=== PATIENT | female | born 1935 | race Caucasian/White ===

== ENCOUNTER → 2019-07-04 10:23 | Outpatient (CLI) | payer MEDICARE, BC, SELFPAY ==
--- NOTE | ~2019-07-04 | XR_ITS ---
EXAMINATION: XR lumbar spine 6V w bending DATE: 07/04/2019 11:05 INDICATION: Low back pain and radiculopathy TECHNIQUE: Anteroposterior, lateral in neutral, flexion and extension, and bilateral oblique views of the lumbar spine, and cone-down lateral view of the lumbosacral junction were obtained. COMPARISON: CT, 04/04/2019; MRI from today and 08/25/2017 FINDINGS: There are 4 mm of stable retrolisthesis of L3 on L4. No laxity is present with flexion or e xtension. A chronic L3 compression fracture is noted with 2/5 loss of height. There is mild loss of i ntervertebral disc space height at L1-2 and moderate loss of disc space height at L2-3 and L3-4. Ther e is severe facet osteoarthritis of the lower lumbar spine. No fracture is identified. IMPRESSION: 1. Moderate lumbar spondylosis without acute findings or significant interval change. Reviewed, dictated and finalized at location A.
--- NOTE | ~2019-07-04 | MR_ITS ---
EXAMINATION: MR lumbar spine wo [facility] EXAM DATE: 07/04/2019 11:26 INDICATION: Low back pain, bilateral hip burning, right leg pain. TECHNIQUE: Multi-sequential, multiplanar MR images of the lumbar spine were obtained without contrast . Sagittal T1, T2, T2 fat saturation images. Axial T2 weighted images. Comparison is made to prior examination from 08/25/2017. FINDINGS: Mild to moderate chronic compression fractures of L2 and L3 with anterior wedging of these levels. Moderate size Schmorl's node at the superior endplate of L3. There is 3 mm anterolisthesis L5 on S1. There is 4 mm retrolisthesis L3 on L4. Mild to moderate disc disease L2-3 and L3-4, mild at t he other lumbar levels. The conus medullaris terminates at the L1/2 level and has normal signal inten sity and morphology. Paraspinal soft tissue is unremarkable. There are no suspicious marrow signal abnormalities. Level by level evaluation: T12-L1: There is a mild diffuse disc bulge. Facet arthropathy: Mild. Neural foraminal stenosis: No stenosis. Central canal stenosis: No stenosis. L1-L2: There is a mild to moderate diffuse disc bulge. Facet arthropathy: Mild to moderate. Neural foraminal stenosis: Mild bilateral. Central canal stenosis: Minimal. L2-L3: There is a mild to moderate diffuse disc bulge. Facet arthropathy: Mild to moderate. Neural foraminal stenosis: Mild to moderate left, mild right. Central canal stenosis: Mild. L3-L4: There is a moderate diffuse disc bulge. Facet arthropathy: Moderate . Ligamentum flavum enlargement. Neural foraminal stenosis: Moderate bilateral. Central canal stenosis: Moderate. L4-L5: There is a mild to moderate diffuse disc bulge. Facet arthropathy: Moderate to severe . Ligamentum flavum enlargement. Neural foraminal stenosis: Moderate bilateral. Central canal stenosis: Moderate. L5-S1: There is a mild diffuse disc bulge. Facet arthropathy: Moderate to severe right, mild left. Neural foraminal stenosis: Mild bilateral. Central canal stenosis: Mild. Compared to prior study, the L2 compression fracture has developed, but without edema is still likely chronic. Otherwise minimal progression in spondylosis. IMPRESSION: 1. Chronic L2 and L3 compression fractures. 2. Overall moderate lumbar spondylosis. Reviewed, dictated and finalized at location A.
== END ==
PROVIDERS: PCP Internal Medicine; Visit Provider Nurse Practitioner Adult Health
DX: M48.061 Spinal stenosis, lumbar region without neurogenic claudication (principal); M47.26 Other spondylosis with radiculopathy, lumbar region
CPT/HCPCS: 72114; 72148

== ENCOUNTER 2019-07-05 09:24 | Emergency (ER) | payer MEDICARE, BC, SELFPAY ==
[2019-07-05 09:42] VITALS: BP 151/58; PULSE 75; RESP 16; TEMP 36.4; O2SAT 98
--- NOTE | 2019-07-05 09:44 | ED.GENADULT ---
HPI - General Adult General Chief complaint: Urogenital-Female Stated complaint: UTI History of Present Illness HPI narrative: Patient is a 83-year-old female with history significant for CVA who presents to urgent care via POV accompanied by her spouse for evaluation of dysuria that is been present for approximately 2 days. Patient is unable to provide detailed HPI due to expressive aphasia. States patient has a history of UTIs and today symptoms are similar to previous UTIs. Unable to obtain aggravating or alleviating factors. Patient has been taking Azo for dysuria. Patient does repeatedly state accidents, accidents, accidents it appears as if she is referring to urinary incontinence. Patient smells of urine. Urine odor strong. Denies history of pyelonephritis and renal calculi. Pertinent negatives: fever, poor p.o. intake, abdominal pain, constipation, nausea, vomiting, diarrhea, abdominal cramping, hematuria, urinary frequency/urgency, back pain, urinary incontinence, vaginal bleeding/discharge, shortness of breath, chest pain, and heart palpitations/murmurs. Patient able to answer questions appropriately. Related Data Home Medications Medication Instructions Recorded Confirmed atorvastatin [Lipitor] 40 mg PO DAILY 07/05/19 07/05/19 cyclosporine [Restasis] 1 drp OPHTHALMIC (EYE) Q12H 07/05/19 07/05/19 escitalopram oxalate [Lexapro] 10 mg PO DAILY 07/05/19 07/05/19 rabeprazole 20 mg PO DAILY 07/05/19 07/05/19 sertraline [Zoloft] 50 mg PO DAILY 07/05/19 07/05/19 Allergies Allergy/AdvReac Type Severity Reaction Status Date / Time adhesive tape Allergy Mild SKIN Verified 04/23/19 09:52 TURNED RED levofloxacin Allergy Mild Unknown Verified 04/23/19 09:52 Sulfa (Sulfonamide Allergy Unknown Unknown Verified 04/23/19 09:52 Antibiotics) Review of Systems Review of Systems: Narrative: All other systems reviewed and are negative PMFSH Past Medical History Medical History Ankle fracture, left Arthritis Breast cancer, left Cataract, left eye 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 Diverticulitis GERD (gastroesophageal reflux disease) Inguinal hernia Leg fracture, left Osteoporosis PUD (peptic ulcer disease) Shingles Spinal stenosis UTI (urinary tract infection) Vertebral fracture Surgical History Surgical History Cataract extraction status, left eye H/O dilation and curettage H/O inguinal hernia repair H/O left mastectomy With reconstruction H/O tubal ligation H/O: hysterectomy History of bladder suspension procedure History of total right knee replacement Family History Family History Father Cerebrovascular accident Mother Family history of malignant neoplasm of uterus Other Family history of malignant neoplasm Social History Social History Smoking status: Never smoker Second hand tobacco smoke exposure: No Alcohol intake: current Drinks per week: 12 Other substance usage details: CBD oil Gender identity (if verbalized by the patient): Female Spiritual care concerns: No Agree to blood products: Yes Exam Narrative: Exam Narrative: GENERAL: Well-appearing, well-nourished, and in no acute distress. HEAD: Normocephalic, atraumatic. NECK: Supple. No lymphadenopathy or nuchal rigidity. CHEST: Lung sounds are clear to auscultation in bilateral lung sánchez. No respiratory distress. HEART: Regular rate and rhythm. No murmur, gallop, or rub heard. ABDOMEN: Soft, non-tender, non-distended, normal active bowel sounds in all quadrants. No guarding. No rebound tenderness. No pulsatile or palpable abdominal mass(es). No CVATGU: Bladder non-distended, non-tender EXTREMITIES: Normal range of motion. No edema. SKIN: Warm, dry
== END 2019-07-05 10:00 | disposition home or self-care (01) ==
PROVIDERS: Emergency Provider Nurse Practitioner Family; PCP Internal Medicine
DX: N30.90 Cystitis, unspecified without hematuria (principal); M19.90 Unspecified osteoarthritis, unspecified site; K21.9 Gastro-esophageal reflux disease without esophagitis; M81.0 Age-related osteoporosis without current pathological fracture; Z98.42 Cataract extraction status, left eye; Z85.3 Personal history of malignant neoplasm of breast; Z90.12 Acquired absence of left breast and nipple; Z96.651 Presence of right artificial knee joint; I69.320 Aphasia following cerebral infarction; K27.9 Peptic ulcer, site unspecified, unspecified as acute or chronic, without hemorrhage or perforation; M48.00 Spinal stenosis, site unspecified
CPT/HCPCS: 81003; 87086; 99213; G0463

== ENCOUNTER 2019-07-07 08:17 | Emergency (ER) | payer MEDICARE, BC, SELFPAY ==
--- NOTE | 2019-07-07 08:25 | ED.FEMALEGU ---
HPI - Female Genitourinary General Chief complaint: Urogenital-Female Stated complaint: urinary retention Time Seen by Provider: 07/07/19 08:22 Source: patient and family Mode of arrival: ambulatory Limitations: no limitations History of Present Illness HPI Narrative: An 83 y/o female presents to the ED with c/o urinary retention. Per patient's , the patient started to have dysuria 2 days ago and went to the urgent care. The patient was diagnosed with UTI and prescribed Doxycycline at the urgent care. The adds that the patient has been compliant with her medication, but has not urinated since last night. She denies any changes in her food and liquid intake. Pt recently had a CVA and has been on medication since. MD elicited complaint: other (Urinary retention) Pertinent past history: other (UTI) Onset (ago): day(s) (1) Urinary symptoms: Dysuria Associated symptoms: denies other symptoms Related Data Home Medications Medication Instructions Recorded Confirmed atorvastatin [Lipitor] 40 mg PO DAILY 07/05/19 07/05/19 cyclosporine [Restasis] 1 drp OPHTHALMIC (EYE) Q12H 07/05/19 07/05/19 escitalopram oxalate [Lexapro] 10 mg PO DAILY 07/05/19 07/05/19 rabeprazole 20 mg PO DAILY 07/05/19 07/05/19 sertraline [Zoloft] 50 mg PO DAILY 07/05/19 07/05/19 Allergies Allergy/AdvReac Type Severity Reaction Status Date / Time adhesive tape Allergy Mild SKIN Verified 04/23/19 09:52 TURNED RED levofloxacin Allergy Mild Unknown Verified 04/23/19 09:52 Sulfa (Sulfonamide Allergy Unknown Unknown Verified 04/23/19 09:52 Antibiotics) Review of Systems Review of Systems: All systems reviewed & are unremarkable except as noted in HPI and below Constitutional: Constitutional: Denies other (Changes in food and liquid intake) Genitourinary: Genitourinary: Reports dysuria and Reports other (Urinary retention) [facility] Past Medical History Medical History Ankle fracture, left Arthritis Breast cancer, left Cataract, left eye 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 Diverticulitis GERD (gastroesophageal reflux disease) Inguinal hernia Leg fracture, left Osteoporosis PUD (peptic ulcer disease) Shingles Spinal stenosis UTI (urinary tract infection) Vertebral fracture Surgical History Surgical History Cataract extraction status, left eye H/O dilation and curettage H/O inguinal hernia repair H/O left mastectomy With reconstruction H/O tubal ligation H/O: hysterectomy History of bladder suspension procedure History of total right knee replacement Family History Family History Father Cerebrovascular accident Mother Family history of malignant neoplasm of uterus Other Family history of malignant neoplasm Social History Social History Smoking status: Never smoker Second hand tobacco smoke exposure: No Alcohol intake: current Drinks per week: 12 Other substance usage details: CBD oil Gender identity (if verbalized by the patient): Female Spiritual care concerns: No Agree to blood products: Yes Exam Narrative: Exam Narrative: GENERAL: Well-appearing, well-nourished, and in no acute distress. HEAD: Normocephalic, atraumatic. ENT: Mucous membranes moist. CHEST: Clear to auscultation. No respiratory distress. HEART: Regular rate and rhythm. Normal peripheral pulses. ABDOMEN: Soft, nontender, nondistended, normal active bowel sounds. EXTREMITIES: Normal range of motion. No edema. SKIN: Warm, dry, no rash. NEURO: Awake and alert, follows commands without issue, expressive aphasia noted. Course Course Emergency Course: Garrido catheter placed by nursing staff with 1000 mL out. Will have patient continue doxycycline. MRI from 2 days ago does not show any nerve impingement or cauda equina. N
[2019-07-07 08:29] VITALS: BP 173/70; PULSE 82; RESP 18; TEMP 36.7; O2SAT 94
[2019-07-07] MEDS: SODIUM CHLORIDE 0.9% IV 1,000 ML 999 ML IV CONT (08:43)
[2019-07-07 09:03] LABS: Basophils Absolute Auto 0.1 K/mm3 (0.0-0.1); Basophils Percent Auto 1.3 % (0.2-1.2); Eosinophils Absolute Auto 0.1 K/mm3 (0-0.3); Eosinophils Percent Auto 2.4 % (0-4.4); Hematocrit 37.4 % (37.0-47.0); Hemoglobin 12.5 g/dL (12.0-15.0); Immature Granulocyte Absolute 0.01 K/mm3 (0.00-0.031); Immature Granulocyte Percent A 0.3 % (0-0.5); Lymphocytes Absolute Auto 1.76 K/mm3 (0.9-3.2); Lymphocytes Percent Auto 47.2 % (18.3-44.2); Mean Corpuscular HGB Conc 33.4 g/dl (32-36); Mean Corpuscular Hemoglobin 32.5 pg (26-34); Mean Corpuscular Volume 97.1 fl (80-100); Mean Platelet Volume 9.1 fl (7.4-10.4); Monocytes Absolute Auto 0.4 K/mm3 (0.1-0.6); Monocytes Percent Auto 11.5 % (2.6-8.5); Neutrophils Absolute Auto 1.4 K/mm3 (1.3-6.7); Neutrophils Percent Auto 37.3 % (45.5-73.1); Platelet Count Result 220 k/mm3 (150-375); Red Blood Count 3.85 M/mm3 (4.2-5.4); White Blood Count 3.7 K/mm3 (4.5-10.0)
[2019-07-07 09:08] LABS: Blood Urea Nitrogen 10 mg/dL (7-17); Calcium 9.1 mg/dL (8.4-10.2); Carbon Dioxide 28 mmol/L (22-30); Chloride 103 mmol/L (98-107); Estimated CRCL calculation 39 ml/min; Estimated Glomerular Filt Rate > 60; Glucose 104 mg/dL (65-105); Potassium 3.8 mmol/L (3.4-5.0); Sodium 138 mmol/L (137-145)
[2019-07-07 09:55] LABS: Add Urine Microscopic? NO; Appearance Urine Clear (Clear); Bilirubin Urine Negative (Negative); Blood Urine Negative (Negative); Color Urine Colorless (Yellow); Glucose Urine UA Negative (Negative); Ketones Urine Negative (Negative); Leukocyte Esterase Ur Negative LEU/UL (Negative); Nitrate Urine Negative (Negative); Protein Urine Negative (Negative); Specific Grav Ur 1.005 (1.001-1.035); Urobilinogen Urine Negative mg/dL (<2.0)
[2019-07-07 10:59] VITALS: BP 158/75; PULSE 68; RESP 19; O2SAT 100
== END 2019-07-07 11:04 | disposition home or self-care (01) ==
PROVIDERS: Emergency Provider Emergency Medicine; PCP Internal Medicine
DX: R33.9 Retention of urine, unspecified (principal); N39.0 Urinary tract infection, site not specified; M19.90 Unspecified osteoarthritis, unspecified site; Z85.3 Personal history of malignant neoplasm of breast; I69.920 Aphasia following unspecified cerebrovascular disease; K21.9 Gastro-esophageal reflux disease without esophagitis; M81.0 Age-related osteoporosis without current pathological fracture; Z87.11 Personal history of peptic ulcer disease; Z98.42 Cataract extraction status, left eye; Z90.12 Acquired absence of left breast and nipple; Z96.651 Presence of right artificial knee joint
CPT/HCPCS: 36415; 51702; 80048; 81003; 85025; 96360; 99283; J7030

== ENCOUNTER 2019-07-10 09:07 | Emergency (ER) | payer MEDICARE, BC, SELFPAY ==
--- NOTE | 2019-07-10 09:10 | ED.FEMALEGU ---
HPI - Female Genitourinary General Chief complaint: Urogenital-Female Stated complaint: Catheter problems. Time Seen by Provider: 07/10/19 09:09 Source: patient and family Mode of arrival: ambulatory Limitations: no limitations History of Present Illness HPI Narrative: An 83 y/o female presents to the ED with c/o catheter problems. Per patient's family, the patient had her catheter bag upside down today and was causing the tape to unstick from her leg. She denies ABD pain, fever, and chills. Pt is currently prescribed Doxycycline. She has a PMHx of CVA with expressive aphasia. MD elicited complaint: other (catheter problems) Pertinent past history: other (catheter placement) Onset (ago): hour(s) (today) Associated symptoms: denies other symptoms Treatment prior to arrival: other (Doxycycline) Related Data Home Medications Medication Instructions Recorded Confirmed atorvastatin [Lipitor] 40 mg PO DAILY 07/05/19 07/05/19 cyclosporine [Restasis] 1 drp OPHTHALMIC (EYE) Q12H 07/05/19 07/05/19 escitalopram oxalate [Lexapro] 10 mg PO DAILY 07/05/19 07/05/19 rabeprazole 20 mg PO DAILY 07/05/19 07/05/19 sertraline [Zoloft] 50 mg PO DAILY 07/05/19 07/05/19 Allergies Allergy/AdvReac Type Severity Reaction Status Date / Time adhesive tape Allergy Mild SKIN Verified 07/10/19 09:13 TURNED RED levofloxacin Allergy Mild Unknown Verified 07/10/19 09:13 Sulfa (Sulfonamide Allergy Unknown Unknown Verified 07/10/19 09:13 Antibiotics) Review of Systems Review of Systems: All systems reviewed & are unremarkable except as noted in HPI and below Constitutional: Constitutional: Denies chills and Denies fever(s) Gastrointestinal: Gastrointestinal: Denies abdominal pain PMFSH Social History Social History Smoking status: Never smoker Second hand tobacco smoke exposure: No Alcohol intake: current Drinks per week: 12 Other substance usage details: CBD oil Gender identity (if verbalized by the patient): Female Spiritual care concerns: No Agree to blood products: Yes Exam Narrative: Exam Narrative: APPEARANCE: No acute distress, nontoxic, resting in bed EYES: EOMI HEENT: Normocephalic, atraumatic, OMM RESPIRATORY: No respiratory distress Clear to auscultation bilaterally with no rhonchi wheezing or rales. CARDIOVASCULAR: Regular rate and rhythm without murmurs rubs or gallops. ABDOMINAL: Soft, nontender, nondistended, no rebound or guarding : Garrido catheter in place draining yellow urine MUSCULOSKELETAl: Moves all extremities. NEURO: Awake and alert. Expressive aphasia following commands, SKIN:: Warm, dry. No rashes lesions or abrasions PSYCHIATRIC: Normal affect/mood, Course Course Emergency Course: Reviewed old records Patient had initially arrived the anchor on the patient's right leg is been twisted 360 the catheter twisted around and the had not been sure how to fix this. Nursing staff had unattached anchor but it back down to the skin of the leg states that this is been his only concern and that now that anchor is been replaced he is comfortable with taking the patient home Discussed with patient results of workup and diagnosis. Discussed need for follow-up with primary care, proper use of medication, and reasons to return to the emergency department. Patient understands and agrees to current treatment plan Vital Signs Vital signs: Vital Signs Temperature 98 F 07/10/19 09:16 Pulse Rate 86 07/10/19 09:16 Respiratory Rate 18 07/10/19 09:16 Blood Pressure 164/82 H 07/10/19 09:16 Pulse Oximetry 100 07/10/19 09:16 Temperature 98 F 07/10/19 09:16 Pulse Rate 86 07/10/19 09:16 Respiratory Rate 18 07/10/19 09:16 Blood Pressure 164/82 H 07/10/19 09:16 Pulse Oximetry 100 07/10/19 09:16 Discharge Plan Discharge Clinical Impression: Complication of Garrido catheter Patient Disposition: Home, Self-Care
[2019-07-10 09:16] VITALS: BP 164/82; PULSE 86; RESP 18; TEMP 36.6; O2SAT 100
== END 2019-07-10 10:09 | disposition home or self-care (01) ==
PROVIDERS: Emergency Provider Emergency Medicine; PCP Internal Medicine
DX: Z46.6 Encounter for fitting and adjustment of urinary device (principal); I69.920 Aphasia following unspecified cerebrovascular disease
CPT/HCPCS: 99282

== ENCOUNTER 2019-07-11 11:19 | Emergency (ER) | payer MEDICARE, BC, SELFPAY ==
--- NOTE | 2019-07-11 11:28 | ED.GENADULT ---
HPI - General Adult General Chief complaint: Urogenital-Female Stated complaint: Catherer taped Time Seen by Provider: 07/11/19 11:28 Source: patient Mode of arrival: ambulatory Limitations: no limitations History of Present Illness HPI narrative: 83-year-old female patient was brought into the [facility] care accompanied by her with complaints of their tape of their catheter falling off. Patient's states that there is some tape on her leg that holds the catheter tubing in place that is coming off and they do not had not know how to tape it back in place. Patient had a catheter put in place for urinary retention. Denies any pain to the area. Patient's states that they are just unsure about the catheter care that they are needing to do for this. Related Data Home Medications Medication Instructions Recorded Confirmed atorvastatin [Lipitor] 40 mg PO DAILY 07/05/19 07/05/19 cyclosporine [Restasis] 1 drp OPHTHALMIC (EYE) Q12H 07/05/19 07/05/19 escitalopram oxalate [Lexapro] 10 mg PO DAILY 07/05/19 07/05/19 rabeprazole 20 mg PO DAILY 07/05/19 07/05/19 sertraline [Zoloft] 50 mg PO DAILY 07/05/19 07/05/19 Allergies Allergy/AdvReac Type Severity Reaction Status Date / Time adhesive tape Allergy Mild SKIN Verified 07/11/19 11:33 TURNED RED levofloxacin Allergy Mild Unknown Verified 07/11/19 11:33 Sulfa (Sulfonamide Allergy Unknown Unknown Verified 07/11/19 11:33 Antibiotics) Review of Systems Review of Systems: Narrative: CONSTITUTIONAL: Denies fever, chills, or sweats. EYES: Denies visual changes, redness, or discharge. ENT: Denies rhinorrhea, congestion, sore throat, or otalgia. CARDIOVASCULAR: Denies chest pain, palpitations, or edema. RESPIRATORY: Denies cough or dyspnea. GASTROINTESTINAL: Denies abdominal pain, nausea, vomiting, or diarrhea. GENITOURINARY: Denies dysuria or hematuria. SKIN: Denies rash or itching. MUSCULOSKELETAL: Denies back pain, joint pain, or myalgia. NEUROLOGIC: Denies headache, numbness, or weakness. PSYCHIATRIC: Denies anxiety or depression. 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) Diverticulitis Gastroesophageal reflux disease without esophagitis GERD (gastroesophageal reflux disease) Hx of breast cancer Inguinal hernia Irritable bowel syndrome with both constipation and diarrhea Leg fracture, left Osteoporosis Post-menopausal PUD (peptic ulcer disease) Shingles Spinal stenosis TGA (transient global amnesia) UTI (urinary tract infection) Vertebral fracture Surgical History Surgical History Cataract extraction status, left eye H/O dilation and curettage H/O inguinal hernia repair H/O left mastectomy With reconstruction H/O tubal ligation H/O: hysterectomy History of bladder suspension procedure History of total right knee replacement Presence of right artificial knee joint Family History Family History Father Cerebrovascular accident Mother Family history of malignant neoplasm of uterus Other Family history of malignant neoplasm Social History Social History Smoking status: Never smoker Second hand tobacco smoke exposure: No Alcohol intake: current Drinks per week: 12 Other substance usage details: CBD oil Gender identity (if verbalized by the patient): Female Spiritual care concerns: No Agree to blood products: Yes Comments At the time of my signature I agree with nursing past medical history, surgical, social, and family history. There is no relevant family history pertinent to the presenting compl
[2019-07-11 11:31] VITALS: BP 152/57; PULSE 99; RESP 16; TEMP 36.6; O2SAT 99
== END 2019-07-11 11:46 | disposition home or self-care (01) ==
PROVIDERS: Emergency Provider Nurse Practitioner Family; PCP Internal Medicine
DX: Z46.6 Encounter for fitting and adjustment of urinary device (principal); Z96.651 Presence of right artificial knee joint; Z85.3 Personal history of malignant neoplasm of breast; Z90.12 Acquired absence of left breast and nipple; Z98.42 Cataract extraction status, left eye; F32.9 Major depressive disorder, single episode, unspecified; I69.320 Aphasia following cerebral infarction; K21.9 Gastro-esophageal reflux disease without esophagitis; M81.0 Age-related osteoporosis without current pathological fracture; M48.00 Spinal stenosis, site unspecified
CPT/HCPCS: 99211; G0463

== ENCOUNTER → 2019-07-25 10:16 | Outpatient (CLI) | payer MEDICARE, BC, SELFPAY ==
--- NOTE | ~2019-07-25 | XR_ITS ---
XR lumbar spine 2-3V DATE: 07/25/2019 10:41 INDICATION: Low back pain, radiculopathy. Spinal stenosis. TECHNIQUE: Standing AP, lateral, coned lateral lumbosacral views COMPARISON: 07/04/2019 MRI lumbar spine 07/04/2019 lumbar spine FINDINGS: Again noted are chronic L2 and L3 compression fracture deformities which appears stable com pared to 07/04/2019. Diffuse osteopenia. There is mild retrolisthesis and moderate degenerative disease at L3-4. Moderate degenerative disc di sease is noted throughout the lumbosacral area. There is prominent degenerative change at the apophyseal joints with associated grade 1 anterolisthes is at L4-5. Sacroiliac joints and pubic symphysis appear intact. Hip joint spaces appear symmetric and relatively preserved. IMPRESSION: Chronic L2 and L3 compression fracture deformities, stable since 07/04/2019 Diffuse osteopenia Degenerative changes Reviewed, dictated and finalized at location A. IMPRESSION: Chronic L2 and L3 compression fracture deformities, stable since Diffuse osteopenia Degenerative changes
== END ==
PROVIDERS: PCP Internal Medicine; Visit Provider Nurse Practitioner Adult Health
DX: M54.5 Low back pain (principal); M85.88 Other specified disorders of bone density and structure, other site
CPT/HCPCS: 72100

== ENCOUNTER → 2019-12-11 14:53 | Outpatient (CLI) | payer MEDICARE, BC, SELFPAY ==
--- NOTE | ~2019-12-11 | MR_ITS ---
EXAMINATION: MR brain/brain stem wo/w con DATE: 12/11/2019 15:54 INDICATION: Disorientation. Cerebral infarction. TECHNIQUE: Magnetic resonance imaging (MRI) of the brain and brainstem was performed without and with 10 mL MultiHance intravenous contrast. Sequences included sagittal and axial T1-weighted FSE, axial diffusion-weighted FS EPI, axial T2*-weighted GRE, axial T2-weighted FLAIR Propeller, and axial T2-we ighted Propeller. Postcontrast sequences included axial and coronal T1-weighted FSE. Apparent diffusi on coefficient (ADC) maps were created. COMPARISON: Brain MRI 03/11/2019 FINDINGS: There is an old infarct in left temporal parietal region. There are scattered areas of nons pecific increased T2-weighted signal intensity in the cerebral white matter and martha. There is no int racranial hemorrhage, acute infarction, or abnormal intracranial mass lesion. There is ex vacuo dilat ation of trigone of left lateral ventricle. There are likely changes of left ocular lens replacement surgery. There is mild mucosal thickening in the paranasal sinuses. The mastoid air cells are normal. IMPRESSION: 1. Old infarct in left temporal parietal region. 2. Stable moderate nonspecific cerebral white matter disease and pontine disease, which likely repres ents chronic small vessel ischemic disease. Reviewed, dictated and finalized at location B. IMPRESSION: 1. Old infarct in left temporal parietal region. 2. Stable moderate nonspecific cerebral white matter disease and pontine diseas e, which likely represents chronic small vessel ischemic disease.
[2019-12-11 15:40] LABS: Estimated Glomerular Filt Rate > 60
== END ==
PROVIDERS: PCP Internal Medicine; Visit Provider Internal Medicine
DX: I63.9 Cerebral infarction, unspecified (principal); R41.0 Disorientation, unspecified; R93.0 Abnormal findings on diagnostic imaging of skull and head, not elsewhere classified
CPT/HCPCS: 70553; A9577

== ENCOUNTER 2019-12-26 10:36 | Outpatient (CLI) | payer MEDICARE, BC, SELFPAY ==
[2019-12-26 11:44] LABS: Add Urine Microscopic? NO; Appearance Urine Clear (Clear); Bilirubin Urine Negative (Negative); Blood Urine Negative (Negative); Color Urine Straw (Yellow); Glucose Urine UA Negative (Negative); Ketones Urine Negative (Negative); Leukocyte Esterase Ur Negative LEU/UL (Negative); Nitrate Urine Negative (Negative); Protein Urine Negative (Negative); RBC Urine 0-2 /hpf (0-2); Specific Grav Ur 1.011 (1.001-1.035); Squamous Epithelial Cell Urine Few /hpf (Few); Transitional Epi Cells Urine Rare /hpf (None Seen); Urobilinogen Urine Negative mg/dL (<2.0); WBC Urine 0-3 /hpf
== END 2019-12-26 10:37 | disposition home or self-care (01) ==
LOC: ANHLAB 10:36
PROVIDERS: PCP Internal Medicine; Visit Provider Internal Medicine
DX: R30.0 Dysuria (principal)
CPT/HCPCS: 81003

== ENCOUNTER → 2020-09-30 13:58 | Outpatient (CLI) | payer MEDICARE, BC, SELFPAY ==
--- NOTE | ~2020-09-30 | XR_ITS ---
XR_[id number] DATE: 09/30/2020 14:57 INDICATION: Chest pain TECHNIQUE: PA chest. 3 views of the left ribs. COMPARISON: None FINDINGS: There is diffuse osteopenia. No fracture or bone destruction of the left ribs is evident. Normal heart size. No hilar or mediastinal enlargement. No pulmonary infiltrate or consolidation, ple ural effusion or pulmonary vascular congestion or pneumothorax is evident. Bilateral breast implants. IMPRESSION: Diffuse osteopenia; no left rib fracture or bone destruction No active cardiopulmonary disease Reviewed, dictated and finalized at Location A. Reviewed, dictated and finalized at location A.
== END ==
PROVIDERS: PCP Internal Medicine; Visit Provider Internal Medicine
DX: R07.9 Chest pain, unspecified (principal); M85.89 Other specified disorders of bone density and structure, multiple sites
CPT/HCPCS: 71101

== ENCOUNTER 2021-04-01 07:41 | Outpatient (RCR) | payer MEDICARE, BC, SELFPAY ==
[2021-03-24 11:58] VITALS: BMI 24.5
--- NOTE | 2021-04-22 09:24 | PCWOUND ---
WOCN NOTE Patient's daughter called to cancel appointment for today. Patient had fallen last night and she is complaining about her shoulder hurting now. Patients daughter states that the wound is closed at this time, but there is some dry skin noted around the area. Educated that she can stop the Silver gel treatments at this time and can apply any type of skin moisturizer she would like. No follow up appointments made at this time. Daughter to contact the wound center for any questions or concerns in the future.
== END 2021-06-08 08:30 | disposition home or self-care (01) ==
LOC: ANHWOC 07:41
PROVIDERS: PCP Internal Medicine; Visit Provider Nurse Practitioner
DX: S81.802D Unspecified open wound, left lower leg, subsequent encounter (principal)
CPT/HCPCS: 99212; G0463

== ENCOUNTER → 2021-04-22 11:40 | Outpatient (CLI) | payer MEDICARE, BC, SELFPAY ==
--- NOTE | ~2021-04-22 | XR_ITS ---
XR humerus LT DATE: 04/22/2021 12:31 INDICATION: Fall. Left arm injury TECHNIQUE: 2 views COMPARISON: None FINDINGS: There is diffuse osteopenia. There is a recent mildly superiorly displaced fracture of the greater tuberosity of the proximal left humerus. No other fracture or dislocation is evident. Normal alignment at the acromioclavicular, gle nohumeral and elbow joints. IMPRESSION: Fracture greater tuberosity of proximal left humerus Osteopenia Reviewed, dictated and finalized at location A. [facility] DEPARTMENT
--- NOTE | ~2021-04-22 | XR_ITS ---
XR forearm LT 2V DATE: 04/22/2021 12:31 INDICATION: Fall. Left upper extremity injury, pain TECHNIQUE: 2 views COMPARISON: None FINDINGS: There is diffuse osteopenia. There is osteoarthritic change at the first carpometacarpal and triscaphe and interphalangeal joints. No fracture or dislocation, periosteal reaction or bone destruction of the radius or ulna. Normal ali gnment at the elbow and wrist joints. IMPRESSION: Osteopenia Polyarticular osteoarthritis Reviewed, dictated and finalized at location A. H MOSS OPERATOR
--- NOTE | ~2021-04-22 | XR_ITS ---
XR hand LT min 3V DATE: 04/22/2021 12:31 INDICATION: Fall. Left hand injury TECHNIQUE: 3 views COMPARISON: None FINDINGS: There is diffuse osteopenia. There is periarticular osteoarthritis involving particularly the triscaphe, first carpometacarpal and especially multiple interphalangeal joints. No fracture or dislocation, periosteal reaction or bone destruction. IMPRESSION: Polyarticular osteoarthritis No fracture or dislocation Reviewed, dictated and finalized at location A. URES EDITOR
--- NOTE | ~2021-04-22 | XR_ITS ---
[id number] DATE: 04/22/2021 12:31 INDICATION: Fall. Left rib injury, pain TECHNIQUE: PA chest. 3 views of the left ribs. COMPARISON: 09/30/2020 left ribs FINDINGS: There is diffuse osteopenia. There is a recent fracture of the greater tuberosity left humerus. There is degenerative spurring of the left acromioclavicular joint. Mild old healed posterolateral left sixth rib fracture deformity. No recent fracture or bone destruction of left rib cage is detected. Normal heart size. Mild aortic unfolding. No hilar or mediastinal enlargement. The lungs are clear of infiltrate or consolidation. Bilateral breast implants. IMPRESSION: Left humeral greater tuberosity recent fracture Osteopenia Old healed posterolateral left sixth rib fracture No recent left rib fracture is noted Reviewed, dictated and finalized at [facility]. Reviewed, dictated and finalized at [facility]. [employer] [employer]
== END ==
PROVIDERS: PCP Internal Medicine; Visit Provider Internal Medicine
DX: M19.042 Primary osteoarthritis, left hand (principal); M85.822 Other specified disorders of bone density and structure, left upper arm; M19.022 Primary osteoarthritis, left elbow; M85.832 Other specified disorders of bone density and structure, left forearm; M85.842 Other specified disorders of bone density and structure, left hand
CPT/HCPCS: 71101; 73060; 73090; 73130